=== PATIENT | female | born 1985 | race Caucasian/White ===

== ENCOUNTER 2018-12-09 09:03 | Outpatient (CLI) | payer OTHER ==
[~2018-12-09] VITALS: Ht 154.9 cm; Wt 59.4 kg
== END 2018-12-09 10:30 | disposition home or self-care (01) ==
LOC: M LDO 09:03
PROVIDERS: ATTEND Obstetrics & Gynecology
DX: O36.8130 Decreased fetal movements, third trimester, not applicable or unspecified (principal); Z3A.28 28 weeks gestation of pregnancy
CPT/HCPCS: 59025; G0378; G0463